=== PATIENT | male | born 1975 | race Caucasian/White ===

== ENCOUNTER 2020-10-23 10:10 | Emergency (ER) | payer OTHER ==
[~2020-10-23 10:10] MED LIST: BUPRENORPHIN-N1 EACH SL; HYDROCHLOROTHIA25 MG PO; IBUPROFEN800 MG PO; LISINOPRIL30 MG PO; NEURONTIN 400400 MG PO; OMEPRAZOLE40 MG PO; PRILOSEC OTC20 MG PO; TAPAZOLE10 MG PO; ZESTRIL30 MG PO
[2020-10-23] MEDS ORDERED: IBU800 MG PO (14:26)
[2020-10-23] MEDS ORDERED: FLOMAX 0.4 MG0.4 MG PO (14:26)
[2020-10-23] MEDS ORDERED: PERCOCET 5/325 T1 EA PO (14:27)
== END 2020-10-23 14:30 | disposition home or self-care (01) ==
LOC: ER1 10:10
DX: N13.2 Hydronephrosis with renal and ureteral calculous obstruction (principal); I10 Essential (primary) hypertension; E03.9 Hypothyroidism, unspecified; Z79.899 Other long term (current) drug therapy
CPT/HCPCS: 81001; 96374; 96375; 99284; J1885; J2405; J7030

== ENCOUNTER 2020-11-02 12:14 | Emergency (ER) | payer OTHER ==
[~2020-11-02 12:14] MED LIST changes: +FLOMAX 0.4 MG0.4 MG PO; +IBU800 MG PO; +PERCOCET 5/325 T1 EA PO
== END 2020-11-02 13:24 | disposition left against medical advice (07) ==
LOC: ER1 12:14
DX: Z53.21 Procedure and treatment not carried out due to patient leaving prior to being seen by health care provider (principal)

== ENCOUNTER → 2021-03-29 | Outpatient (CLI) | payer OTHER | LOC: KOH-I 14:40 | DX: R07.81 Pleurodynia (principal) | CPT/HCPCS: 71045; 71111 ==

== ENCOUNTER → 2021-04-21 | Emergency (ER) | payer OTHER | END | disposition home or self-care (01) | LOC: ER1 19:36 | DX: Z53.21 Procedure and treatment not carried out due to patient leaving prior to being seen by health care provider (principal) ==

== ENCOUNTER 2021-07-28 19:58 | Inpatient (IN) | payer OTHER ==
[~2021-07-28] VITALS: Ht 180.3 cm; Wt 85.0 kg
[~2021-07-28 19:58] MED LIST changes: -LISINOPRIL30 MG PO; +VITAMIN D21250 MCG PO
[2021-07-28 20:28] LABS: RED BLOOD COUNT 4.71 M/UL (4.20-5.50); WHITE BLOOD COUNT 7.6 K/UL (4.5-11.0)
[2021-07-28 20:43] LABS: BUN/CREATININE RATIO 14 (0-10)
[2021-07-28] MEDS ORDERED: VENTOLIN/PROVE0.5 ML INH (23:24)
[2021-07-28] MEDS ORDERED: PROVENTIL HFA6.7 GM INH (23:25)
[2021-07-29 04:39] LABS: ACINETOBACTER BAUMANNII Not Detected (Negative); CANDIDA ALBICANS Not Detected (Negative); CANDIDA KRUSEI Not Detected (Negative); CANDIDA TROPICALIS Not Detected (Negative); ENTEROCOCCUS Not Detected (Negative); ESCHERICHIA COLI Not Detected (Negative); HAEMOPHILUS INFLUENZAE Not Detected (Negative); KLEBSIELLA OXYTOCA Not Detected (Negative); KLEBSIELLA PNEUMONIAE Not Detected (Negative); KPC-CARBAPENEM-RESISTANCE GENE Not Detected (Negative); PROTEUS Not Detected (Negative); PSEUDOMONAS AERUGINOSA Not Detected (Negative); SERRATIA MARCESANS Not Detected (Negative); STAPHYLOCOCCUS Not Detected (Negative); STAPHYLOCOCCUS AUREUS Not Detected (Negative); STREP AGALACTIAE (GROUP B) Not Detected (Negative); STREP PYOGENES (GROUP A) Not Detected (Negative); STREPTOCOCCUS Not Detected (Negative); mecA (METHICILLIN RESIST GENE Not Detected (Negative); vanA/B (VANCOMYCIN RESIST GENE Not Detected (Negative)
[2021-07-29 07:38] LABS: WHITE BLOOD COUNT 6.7 K/UL (4.5-11.0)
[2021-07-29 07:42] LABS: HEMOGLOBIN 12.4 gm/dl (14.0-17.5); RED BLOOD COUNT 4.1 M/UL (4.20-5.50)
[2021-07-29 08:00] LABS: BUN/CREATININE RATIO 11 (0-10)
--- NOTE | 2021-07-30 12:00 | NUR ---
PT IS BEING DISCHARGED INTO THE CARE OF THE POLICE. PT IS UNWILLING TO GO TO INPATIENT STAY RECOMMONDED BY [facility].
[2021-07-30] MEDS ORDERED: DOCUSATE SODIU100 MG PO (13:16)
[2021-07-30] MEDS ORDERED: LEVOTHYROXINE50 MCG PO (13:22)
[2021-07-30] MEDS ORDERED: METHIMAZOLE10 MG PO (13:24)
[2021-07-30] MEDS ORDERED: DESYREL 50 MG T50 MG PO (13:32)
[2021-07-30] MEDS ORDERED: IBUPROFEN800 MG PO (13:35)
[2021-07-30] MEDS ORDERED: ASPIRIN EC81 MG PO (13:37)
[2021-07-30] MEDS ORDERED: ZESTRIL 40 MG T40 MG PO (15:31)
[2021-07-30 16:45] LABS: KPC-CARBAPENEM-RESISTANCE GENE Not Detected (Negative)
[2021-07-30 16:46] LABS: ACINETOBACTER BAUMANNII Not Detected (Negative); CANDIDA ALBICANS Not Detected (Negative); CANDIDA KRUSEI Not Detected (Negative); CANDIDA TROPICALIS Not Detected (Negative); ENTEROCOCCUS Not Detected (Negative); ESCHERICHIA COLI Not Detected (Negative); HAEMOPHILUS INFLUENZAE Not Detected (Negative); KLEBSIELLA OXYTOCA Not Detected (Negative); KLEBSIELLA PNEUMONIAE Not Detected (Negative); PROTEUS Not Detected (Negative); PSEUDOMONAS AERUGINOSA Not Detected (Negative); SERRATIA MARCESANS Not Detected (Negative); STAPHYLOCOCCUS Not Detected (Negative); STAPHYLOCOCCUS AUREUS Not Detected (Negative); STREP AGALACTIAE (GROUP B) Not Detected (Negative); STREP PYOGENES (GROUP A) Not Detected (Negative); STREPTOCOCCUS Not Detected (Negative); mecA (METHICILLIN RESIST GENE Not Detected (Negative); vanA/B (VANCOMYCIN RESIST GENE Not Detected (Negative)
[2021-07-30] MEDS ORDERED: VORT10TA PO (23:20)
[2021-07-30] MEDS ORDERED: VRAYLAR1.5 MG PO (23:20)
--- NOTE | 2021-07-31 10:26 | NUR ---
CALLED AND NOTIFIED DR. WALTON OF [facility] POSIT[facility] BLOOD CULTURE AFTER PT GONE FROM OUR FACILITY, NO FURTHER ACTION NEEDED FALSE POSITIVE/CONTAMINATED PER MD.
== END 2021-07-30 15:12 | DRG 918 ==
LOC: ER1 19:58 → CDU 21:40 → CCU 21:40 → MED SURG 4 07-29 13:55
PROVIDERS: Emergency Medicine; Internal Medicine; ADMIT Internal Medicine
DX: T50.7X1A Poisoning by analeptics and opioid receptor antagonists, accidental (unintentional), initial encounter (principal); F11.20 Opioid dependence, uncomplicated; F15.20 Other stimulant dependence, uncomplicated; F17.200 Nicotine dependence, unspecified, uncomplicated; I25.10 Atherosclerotic heart disease of native coronary artery without angina pectoris; I10 Essential (primary) hypertension; K21.9 Gastro-esophageal reflux disease without esophagitis; F32.A Depression, unspecified; T14.91XA Suicide attempt, initial encounter; G89.29 Other chronic pain; I44.7 Left bundle-branch block, unspecified; Z95.1 Presence of aortocoronary bypass graft; Z80.1 Family history of malignant neoplasm of trachea, bronchus and lung; Z79.899 Other long term (current) drug therapy; Z79.82 Long term (current) use of aspirin
CPT/HCPCS: 36415; 71045; 80053; 80307; 81001; 82550; 82553; 83605; 83735; 83874; 84484; 85025; 87040; 87150; 93005; 96374; 96375; 99284; C9113; G0480; J1650; J7030

== ENCOUNTER 2021-10-04 23:25 | Emergency (ER) | payer OTHER ==
[~2021-10-04 23:25] MED LIST changes: +ASPIRIN EC81 MG PO; +DESYREL 50 MG T50 MG PO; +DOCUSATE SODIU100 MG PO; +LEVOTHYROXINE50 MCG PO; +METHIMAZOLE10 MG PO; +PROVENTIL HFA6.7 GM INH; +VENTOLIN/PROVE0.5 ML INH; +VORT10TA PO; +VRAYLAR1.5 MG PO; +ZESTRIL 40 MG T40 MG PO
[2021-10-05 01:00] LABS: HEMOGLOBIN 15.1 gm/dl (14.0-17.5); RED BLOOD COUNT 4.75 M/UL (4.20-5.50); WHITE BLOOD COUNT 8.8 K/UL (4.5-11.0)
[2021-10-05 01:20] LABS: BUN/CREATININE RATIO 17 (0-10)
[2021-10-05] MEDS ORDERED: COLACE 100MG C100 MG PO (03:37)
[2021-10-05] MEDS ORDERED: BENTYL 10MG CAP10 MG PO (03:37)
[2021-10-05] MEDS ORDERED: MIRALAX17 GM PO (03:37)
== END 2021-10-05 04:22 | disposition home or self-care (01) ==
LOC: ER1 23:25
PROVIDERS: Student in an Organized Health Care Education/Training Program
DX: K59.00 Constipation, unspecified (principal); I11.9 Hypertensive heart disease without heart failure; F17.210 Nicotine dependence, cigarettes, uncomplicated
CPT/HCPCS: 80053; 81001; 83605; 83690; 85025; 93005; 96374; 96375; 99284; J2270; J2405; Q9967

== ENCOUNTER 2021-11-13 02:53 | Emergency (ER) | payer OTHER ==
[~2021-11-13 02:53] MED LIST changes: +BENTYL 10MG CAP10 MG PO; +COLACE 100MG C100 MG PO; +MIRALAX17 GM PO
[2021-11-13 04:35] LABS: HEMOGLOBIN 15.1 gm/dl (14.0-17.5); RED BLOOD COUNT 4.86 M/UL (4.20-5.50); WHITE BLOOD COUNT 8.7 K/UL (4.5-11.0)
[2021-11-13 05:03] LABS: BUN/CREATININE RATIO 19 (0-10)
== END 2021-11-14 08:50 | disposition home or self-care (01) ==
LOC: ER1 02:53
PROVIDERS: Nurse Practitioner; Physician Assistant Medical
DX: T43.211A Poisoning by selective serotonin and norepinephrine reuptake inhibitors, accidental (unintentional), initial encounter (principal); F15.10 Other stimulant abuse, uncomplicated; R07.9 Chest pain, unspecified; I25.10 Atherosclerotic heart disease of native coronary artery without angina pectoris; I11.9 Hypertensive heart disease without heart failure; Z20.822 Contact with and (suspected) exposure to COVID-19
CPT/HCPCS: 71045; 80053; 80307; 81001; 82550; 82553; 83880; 84439; 84443; 84484; 85025; 85652; 86140; 93005; 99285; G0480; U0002